=== PATIENT | male | born 1965 | race African-American/Black ===

== ENCOUNTER 2016-10-13 14:41 | Day surgery (SDC) | payer BC ==
--- NOTE | ~2016-10-13 | OP ---
Record Of Operation [facility] [address] [place]. [address] NAME: IMANI JOHNSON : 69 STATUS : [facility]#: [id number] AGE: 50 ADM/REG DATE : 10/13/16 MR#: [id number] REPORT SERV DATE: 10/14/16 DICTATED BY: MARC GREGG DATE: 10/13/16 REPORT STATUS : Draft TRANSCRIBED BY: MODL DATE: 10/13/16 DATE OF PROCEDURE: 10/13/2016 PREOPERATIVE DIAGNOSIS: Necrotic right transmetatarsal amputation. POSTOPERATIVE DIAGNOSES: Necrotic right transmetatarsal amputation. PROCEDURE: 1. Debridement skin, subcutaneous tissues, muscle, tendon, and bone, right transmetatarsal amputation incision of 14 x 5 cm. 2. Placement of VAC dressing 14 x 2 cm. SURGEON: Marc Gregg M.D. ANESTHESIA: General. COMPLICATIONS: None. ESTIMATED BLOOD LOSS: 30 mL. HISTORY: The patient is a 50-year-old male who underwent revascularization and eventual transmetatarsal amputation in [place], [place]. He presented for second opinion. After long discussion, he preferred and attempted salvage with debridement and VAC dressing. This was discussed in detail with the patient and , they expressed understanding and desired to proceed. DESCRIPTION OF PROCEDURE: The patient was taken to the operating room and placed in the supine position. He was given general anesthesia without complication. Right leg was prepped and draped in sterile fashion. The necrotic skin edges and plantar flap, fibrinous debris, and muscle were excised with 10 blade to healthy bleeding tissue. The second through fifth metatarsal heads were resected to the new dorsal margin with the power saw. The necrotic muscle tendon were debrided from the wound to healthy bleeding tissue. A single bleeding vessel was controlled with Vicryl suture. The remaining bleeding was controlled with Bovie cautery. The wound was then copiously irrigated. There was no significant residual necrosis. There was no active infection. The plantar flap was brought dorsally and secured with a single horizontal mattress Ethilon suture. A VAC sponge was then cut to appropriate size and two pieces were placed one on each side of the suture and secured with adhesive. The sponge was placed between the two sponges and brought onto the foot and secured with adhesive as well. Suction was initiated without difficulty. The patient tolerated the procedure well and was taken to recovery room in stable condition. DAPHNEJ/NINO Marc Record Of Operation [facility] [address] [place]. [address] NAME: IMANI JOHNSON : 69 STATUS : [facility] PAT#: [id number] AGE: 50 ADM/REG DATE : 10/13/16 MR#: [id number] REPORT SERV DATE: 10/14/16 DICTATED BY: MARC GREGG DATE: 10/13/16 REPORT STATUS : Draft TRANSCRIBED BY: MODTrenton DATE: 10/13/16 Curt Gregg M.D. / [id number] CC: Alfonzo Dubon MD
[~2016-10-13 14:41] MED LIST: ASAB PO; CAT2 PO; DENIES; GLUCOTRO10 PO; LISINOPRIL40 MG PO; NORCO1 TA2 PO; NORV10 PO
[2016-10-13 15:59] LABS: HEMOGLOBIN 10.7 g/dL (13.6-17.8)
[2016-10-13 16:12] LABS: CHLORIDE, SERUM 106 MMOL/L (96-112); CO2 (CARBON DIOXIDE) 24 MMOL/L (24-34); SODIUM, SERUM 139 MMOL/L (135-148)
[2016-10-13 16:13] LABS: BUN (BLOOD UREA NITROGEN) 52 MG/DL (6-23); CALCIUM, SERUM 10.3 MG/DL (8.5-10.4); CREATININE 2.32 MG/DL (0.70-1.30); GFR AFRICAN AMERICAN 37 ML/MIN (>=60); GFR NON AFRICAN AMERICAN 32 ML/MIN (>=60); GLUCOSE, SERUM 148 MG/DL (60-99)
[2016-11-20] MEDS ORDERED: CLEOCIN300 MG PO (10:16)
== END 2016-10-13 21:10 | disposition home or self-care (01) ==
LOC: SDC 14:41
PROVIDERS: Surgery
PROC: 0QBN0ZZ Excision of Right Metatarsal, Open Approach (ICD-10-PCS; principal; 2016-10-13 16:30)
DX: T87.53 Necrosis of amputation stump, right lower extremity (principal); I12.9 Hypertensive chronic kidney disease with stage 1 through stage 4 chronic kidney disease, or unspecified chronic kidney disease; E11.21 Type 2 diabetes mellitus with diabetic nephropathy; E11.59 Type 2 diabetes mellitus with other circulatory complications; E11.22 Type 2 diabetes mellitus with diabetic chronic kidney disease; E11.51 Type 2 diabetes mellitus with diabetic peripheral angiopathy without gangrene; N18.4 Chronic kidney disease, stage 4 (severe); D64.9 Anemia, unspecified; K21.9 Gastro-esophageal reflux disease without esophagitis; Z87.891 Personal history of nicotine dependence; Z90.49 Acquired absence of other specified parts of digestive tract; Z98.890 Other specified postprocedural states; Z83.3 Family history of diabetes mellitus; Z79.899 Other long term (current) drug therapy; Z79.82 Long term (current) use of aspirin; Z88.0 Allergy status to penicillin; Z79.891 Long term (current) use of opiate analgesic; Z98.41 Cataract extraction status, right eye
CPT/HCPCS: 80048; 82962; 85014; 85018; J0690; J2270; J2370; J2405; J2710; J3010

== ENCOUNTER 2016-11-01 10:25 | Day surgery (SDC) | payer BC ==
[2016-10-31 11:01] LABS: BASOPHILS 0.4 %; BASOPHILS ABSOLUTE 0.04 10/3/uL (0.0-0.16); EOSINOPHILS 4.8 %; EOSINOPHILS ABSOLUTE 0.46 10/3/uL (0.0-0.53); HEMATOCRIT 29.2 % (40.0-51.0); HEMOGLOBIN 9.5 g/dL (13.6-17.8); IMMATURE GRANULOCYTES 0.2 %; IMMATURE GRANULOCYTES ABSOLUTE 0.02 10/3/uL (0.0-0.11); LYMPHOCYTES 26.5 %; LYMPHOCYTES ABSOLUTE 2.55 10/3/uL (0.67-4.30); MEAN CORPUSCULAR HEMOGLOB 28.6 pg (26.0-34.0); MEAN PLATELET VOLUME 8.5 fL (9.2-13.0); MONOCYTES 8.7 %; MONOCYTES ABSOLUTE 0.84 10/3/uL (0.21-1.20); NEUTROPHILS 59.4 %; NEUTROPHILS ABSOLUTE 5.72 10/3/uL (2.02-8.40); WHITE BLOOD CELLS 9.6 10/3/uL (4.5-10.5)
[2016-10-31 11:03] LABS: MANUAL DIFF NO %; MEAN CORPUS HGB CONC 32.5 g/dL (32.0-36.0); PLATELET COUNT 417 10/3/uL (150-400); RED CELL COUNT 3.32 10/6/uL (4.7-6.1)
[2016-10-31 11:16] LABS: CALCIUM, SERUM 9.7 MG/DL (8.5-10.4); CHLORIDE, SERUM 110 MMOL/L (96-112); CO2 (CARBON DIOXIDE) 26 MMOL/L (24-34); CREATININE 1.87 MG/DL (0.70-1.30); GFR AFRICAN AMERICAN 48 ML/MIN (>=60); GFR NON AFRICAN AMERICAN 41 ML/MIN (>=60); POTASSIUM, SERUM 4.9 MMOL/L (3.5-5.3); SODIUM, SERUM 142 MMOL/L (135-148)
[2016-10-31 11:21] LABS: BUN (BLOOD UREA NITROGEN) 30 MG/DL (6-23); GLUCOSE, SERUM 86 MG/DL (60-99)
--- NOTE | ~2016-11-01 | OP ---
Record Of Operation [facility] [address] [place]. [address] NAME: IMANI JOHNSON : 69 STATUS : REG [facility] PAT#: [id number] AGE: 51 ADM/REG DATE : 11/01/16 MR#: [id number] REPORT SERV DATE: 11/01/16 DICTATED BY: HONG GREGG DATE: 11/01/16 REPORT STATUS : Draft TRANSCRIBED BY: NINO DATE: 11/01/16 DATE OF PROCEDURE: 11/01/2016 PREOPERATIVE DIAGNOSIS: Open wound right transmetatarsal amputation. POSTOPERATIVE DIAGNOSIS: Open wound right transmetatarsal amputation. PROCEDURE: 1. Debridement 5 x 10 cm, skin, subcutaneous tissues, bone, and muscle. 2. Closure 10 cm in length complex wound right foot. SURGEON: Hong Gregg M.D. SHERIFF'S DETECTIVE: Portia. ANESTHESIA: General. COMPLICATIONS: None. ESTIMATED BLOOD LOSS: 30 mL. HISTORY: The patient is a 51-year-old male, who has a failed right TMA due to infection. He has undergone debridement and wound care. It was felt he would benefit from repeat debridement and possible closure. This was discussed in detail with the patient and and they expressed understanding and desired to proceed. DESCRIPTION OF PROCEDURE: The patient was taken to the operating room and placed in the supine position. He was given general anesthesia without complication. Right foot was prepped and draped in a sterile fashion. A 10 blade was used to excise necrotic skin and subcutaneous tissues around the wound edges. The power saw was used to remove the remaining metatarsal bones 1 through 5 to a smooth edge. The posterior flap had the excess muscle which was excised sharply with a 10 blade to healthy tissue. The wound was copiously irrigated. Hemostasis assured. The flaps came together now without tension. Once hemostasis was felt to be adequate, the wound was then brought together with multiple interrupted 0 Prolene vertical mattress sutures measuring 10 cm in length. Sterile dressing was applied. The patient tolerated the procedure without difficulty. JAMES/NINO Hong Gregg M.D. / [id number] Record Of Operation [facility] [address]. [address] NAME: IMANI JOHNSON : 69 STATUS : REG [facility] PAT#: [id number] AGE: 51 ADM/REG DATE : 11/01/16 MR#: [id number] REPORT SERV DATE: 11/01/16 DICTATED BY: HONG GREGG DATE: 11/01/16 REPORT STATUS : Draft TRANSCRIBED BY: MODL DATE: 11/01/16 CC: Alfonzo Dubon
[2016-11-20] MEDS ORDERED: CLEOCIN300 MG PO (10:16)
== END 2016-11-01 16:44 | disposition home or self-care (01) ==
LOC: SDC 10:25
PROVIDERS: Surgery
PROC: 0QBL0ZZ Excision of Right Tarsal, Open Approach (ICD-10-PCS; principal; 2016-11-01 13:00)
DX: S98.311 Complete traumatic amputation of right midfoot (principal); I70.235 Atherosclerosis of native arteries of right leg with ulceration of other part of foot; N18.9 Chronic kidney disease, unspecified; I12.9 Hypertensive chronic kidney disease with stage 1 through stage 4 chronic kidney disease, or unspecified chronic kidney disease; E11.21 Type 2 diabetes mellitus with diabetic nephropathy; E11.59 Type 2 diabetes mellitus with other circulatory complications; E55.9 Vitamin D deficiency, unspecified; J45.909 Unspecified asthma, uncomplicated; Z98.890 Other specified postprocedural states; Z79.82 Long term (current) use of aspirin; Z87.891 Personal history of nicotine dependence; Z79.899 Other long term (current) drug therapy; Z88.0 Allergy status to penicillin; Z90.49 Acquired absence of other specified parts of digestive tract
CPT/HCPCS: 80048; 82962; 85025; 93005; J0690; J2250; J2405; J3010

== ENCOUNTER 2016-11-21 15:55 | Inpatient (IN) | payer BC ==
--- NOTE | ~2016-11-21 | DS ---
Discharge Summary [facility] [address] [place]. [address] NAME: IMANI JOHNSON : 69 STATUS : DIS IN PAT#: [id number] AGE: 51 ADM/REG DATE : 11/21/16 MR#: [id number] REPORT SERV DATE: 12/08/16 DICTATED BY: HONG GREGG DATE: 12/07/16 REPORT STATUS : Draft TRANSCRIBED BY: NINO DATE: 12/07/16 Data Collection from hospitalization DISCHARGE DIAGNOSES: 1. Nonhealing transmetatarsal amputation of the right diabetic foot wound. 2. Type 2 diabetes mellitus. 3. Hypertension. 4. Diabetic nephropathy. 5. Vitamin D deficiency. 6. Former smoker. CONSULTATIONS: Yovani Britton M.D. PROCEDURES PERFORMED: 1. Right kzyau-lam-nlay amputation on 11/21/2016. 2. Renal color flow ultrasound on 11/23/2016. PATHOLOGY: Right lower extremity omcyf-wbo-psds amputation - gangrenous necrosis at transmetatarsal amputation site with underlying osteomyelitis, calcific atherosclerosis of the major vessels with luminal stenosis, viable and uninflamed resection margins. MEDICATIONS: Norvasc 10 mg daily, aspirin 81 mg daily, Glucotrol 10 mg before breakfast, Lopressor 12.5 mg twice a day, Flomax 0.4 mg at 6:00 p.m. as instructed, Catapres 0.2 mg at bedtime, and [place] 7.5/325 one tablet every six hours as needed. Prinivil would be held until renal followup. CONDITION AT DISCHARGE: Stable. DISPOSITION: The patient was discharged to [facility] on a diabetic diet with activities as instructed. He would follow up with me 10 to 14 days following discharge. HOSPITAL COURSE: This is a 51-year-old man who has diabetes and peripheral arterial disease. We had made extensive efforts to salvage his right foot. He most recently had closure of the transmetatarsal amputation, which was infected and nonhealing. It was now felt that he would benefit from chrtp-oun-yxhg amputation. Treatment options were discussed and it was elected to proceed with surgical intervention. He was admitted to the hospital at this time for further evaluation and treatment. Upon admission, he was taken to the operating room where he underwent the above-mentioned procedure. He tolerated this well, and there were no complications. On postop day #1, pain control was okay with the RESEARCH BIOSTATISTICIAN. He does have chronic kidney disease. He was seen by Dr. Yovani Britton regarding acute kidney injury on likely chronic kidney disease with hyperkalemia. The patient reports no exposure to contrast medium and it did not appear that these were used during his surgical intervention. He did have a 200 mL loss of blood according to his surgical report. He has not had any difficulty with nausea, vomiting, or diarrhea. He was chronically maintained on an HONG inhibitor in the outpatient setting and had not chronically used nonsteroidal medications. He reported that his diabetes and Discharge Summary [facility] [address] [place]. [address] NAME: IMANI JOHNSON : 69 STATUS : DIS IN PAT#: [id number] AGE: 51 ADM/REG DATE : 11/21/16 MR#: [id number] REPORT SERV DATE: 12/08/16 DICTATED BY: HONG GREGG DATE: 12/07/16 REPORT STATUS : Draft TRANSCRIBED BY: NINO DATE: 12/07/16 hypertension are usually relatively well controlled. His last hemoglobin A1c according to the patient was around 7. He was awake and alert. He denied any current chest pain, nausea, vomiting, or diarrhea. He recently stopped smoking. White count was 14.2. It appears that he had some level of chronic kidney disease. It was felt that baseline creatinine is likely around 1.5 to 1.8 with subsequent acute kidney injury and likely secondary to ATN with noted intraoperative hypotension. Given that he has not had a previous chronic kidney disease workup, we would undertake the following. We would complete a renal ultrasound with Doppler given his smoking and vascular history. We would evaluate urine studies for urine sodium, urine creatinine, and dshncop-mg-chzkwlxetv ratio to ascertain and quantitate his urinary protein excretion. We would treat his potassium with Kayexalate x1 since he appears to have chronic difficulty with hyperkalemia. We were going to take him off his HONG inhibitor and replace that medication with a beta-jodi as it did appear that he would need improvement in his rate control as well as some level of assistance with hypertension control. We would check postvoid residual to ensure there was no urinary retention. It was advised that we avoid contrast medium and avoid nonsteroidal medications. He would be re-evaluated with regard to his need for chronic HONG inhibitor as well as ARB based on his urinary protein excretion, hyperkalemia, and overall medical needs. Further modification of his treatment plan may be made based on clinical presentation, lab results, and further consultation with renal attending. He was evaluated by Occupational and Physical Therapy. On 11/23/2016, he was feeling better. His incision was clean, dry, and intact. Creatinine level had decreased to 1.9. Acute renal failure was improving. He was transfused one unit of packed red blood cells. Discharge planning was performed. Renal color flow ultrasound was obtained. The kidneys appeared grossly normal, nonobstructive, and non-atrophy. There was no evidence of renal artery stenosis seen. Discharge planning was performed. On 11/24/2016, he had no new complaints. He was alert and cooperative. He had no edema. Creatinine level was 1.86. Discharge instructions were given. Due to his improved and stable condition, he was discharged to [facility] with the above-stated instructions. Information collected by: Ann Loaiza I submit the above information as my discharge summary. TG/MODL Hong Gregg M.D. / [id number] CC: Alfonzo Dubon FRANCES [facility] Yovani Britton M.D.
--- NOTE | ~2016-11-21 | OP ---
Record Of Operation [facility] [address] [place]. [address] NAME: IMANI JOHNSON : 69 STATUS : ADM IN PAT#: [id number] AGE: 51 ADM/REG DATE : 11/21/16 MR#: [id number] REPORT SERV DATE: 11/21/16 DICTATED BY: MARC GREGG DATE: 11/21/16 REPORT STATUS : Draft TRANSCRIBED BY: MODL DATE: 11/21/16 DATE OF PROCEDURE: 11/21/2016 PREOPERATIVE DIAGNOSIS: Nonhealing transmetatarsal amputation on the right diabetic foot wound. POSTOPERATIVE DIAGNOSIS: Nonhealing transmetatarsal amputation on the right diabetic foot wound. PROCEDURE: Right below-knee amputation. SURGEON: Marc Gregg M.D. FELLOW: Alvin. ANESTHESIA: General. COMPLICATIONS: None. BLOOD LOSS: 200 mL. HISTORY: The patient is a 51-year-old male with diabetes, peripheral arterial disease, extensive efforts to salvage his right foot. He most recently had closure of the transmetatarsal amputation, which was infected and nonhealing. It was felt he would benefit from below-knee amputation. This was discussed in detail with the patient and family. They expressed understanding and desired to proceed. DESCRIPTION OF PROCEDURE: The patient was taken to the operating room and placed in the supine position. He was given general anesthesia without complication. Right leg was prepped and draped in sterile fashion. An incision was created on the anterior lower leg, more than 4 fingerbreadths from the tibial tuberosity and a long posterior flap created as well. Bovie cautery was used to dissect the subcutaneous tissues and muscle circumferentially. The tibial vessels were identified and ligated with silk ties and divided. The tibia and fibula were freed circumferentially. The tibia was divided at the level of the anterior flap. The fibula was divided 2 cm proximal both with the power saw. The tibial anterior aspect was beveled with a power saw to a smooth edge and a rasp was used as well. The leg was passed off the table as specimen. The wound was copiously irrigated. Hemostasis assured. 20 mL of 0.5% Marcaine were injected throughout the wound. The flaps were brought together and the deep fascia was closed with running 2-0 Vicryl suture. The skin was closed with multiple interrupted 2-0 Ethilon vertical mattress sutures and skin ronny. Sterile dressing were applied. The patient tolerated the procedure well. He will be extubated in the operating room, and taken to recovery for continued care. CSJ/MODL Record Of Operation [place] [address] [place]. [address] NAME: IMANI JOHNSON : 69 STATUS : ADM IN PAT#: [id number] AGE: 51 ADM/REG DATE : 11/21/16 MR#: [id number] REPORT SERV DATE: 11/21/16 DICTATED BY: MARC GREGG DATE: 11/21/16 REPORT STATUS : Draft TRANSCRIBED BY: MODL DATE: 11/21/16 Marc Gregg M.D. / [id number] CC: Alfonzo Dubon FRANCES
--- NOTE | ~2016-11-21 | CN ---
Consultation Report [facility] [address] [place]. [address] NAME: IMANI JOHNSON : 69 STATUS : ADM IN PAT#: [id number] AGE: 51 ADM/REG DATE : 11/21/16 MR#: [id number] REPORT SERV DATE: 11/22/16 DICTATED BY: YOVANI BRITTON DATE: 11/22/16 REPORT STATUS : Draft TRANSCRIBED BY: NINO DATE: 11/22/16 DATE OF CONSULTATION: REASON FOR CONSULTATION: Acute kidney injury on likely CKD with hyperkalemia. HISTORY OF PRESENT ILLNESS: This is a very pleasant 51-year-old, male patient with a nonhealing right diabetic foot ulcer with subsequent right BKA. He is POD #1 today and we are asked to evaluate him in light of a rising serum creatinine with probable underlying CKD. The patient is awake and alert this morning, lying in bed. During evaluation, his pain is well controlled. He reports no chronic or outlying evaluation for chronic kidney disease. 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 He reports no exposure to contrast medium and it does not appear that these were used during surgical intervention. He did however have a 200 mL loss of blood according to his surgical report. He has not had any difficulty with nausea, vomiting, or diarrhea. He is chronically maintained on an HONG inhibitor in the outpatient setting and has not chronically used nonsteroidal medications. He reports that his diabetes and hypertension are usually relatively well controlled. Last A1c according to the patient today was around 7.0. He is awake and alert this morning. Denies current chest pain. No nausea, vomiting, or diarrhea. 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 Chronic kidney disease, baseline creatinine appears to be around 1.5 to 1.8, but the patient has not. According to his recall today, has been evaluated in the outpatient setting by a Renal provider. Personal history of tobacco usage with recent smoking cessation within the last calendar year. Prior to that, he smoked half a pack per day from age 20. Diabetes mellitus type 2 with diabetic nephropathy. No evidence of retinopathy reported by the patient. Vitamin D deficiency and hypertension. PAST SURGICAL HISTORY: Includes toe amputation on 09/12/[address] [facility]. Debridement of wound, 09/19/2016, including excision of metatarsal head by Dr. Lara, [facility]. Abdominal aortogram, 09/08/2016, with arthrectomy and BATTERY TESTER FIELD of right lower extremity. Gallbladder removal. Debridement of skin and subcutaneous tissue, 10/13/2016, 14 x 5 cm with placement of VAC dressing by Dr. Gregg at [facility]. SOCIAL HISTORY: Recent reformed smoker. Recently . 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 No EtOH. No illicit drugs. FAMILY HISTORY: Positive for diabetes, but no evidence of chronic or end-stage renal disease by patient's recall. CURRENT MEDICATIONS AND ALLERGIES: He lists allergies to penicillin. Active medications include amlodipine 10 mg daily, ASA 81 mg daily, Ancef 2 g IV q.8 h., Catapres 0.2 mg p.o. at bedtime, Glucotrol 10 mg p.o. before meals, Heparin 5000 units subcu Consultation Report [place] [id number] [place]. [address] NAME: IMANI JOHNSON : 69 STATUS : ADM IN PAT#: [id number] AGE: 51 ADM/REG DATE : 11/21/16 MR#: [id number] REPORT SERV DATE: 11/22/16 DICTATED BY: YOVANI BRITTON DATE: 11/22/16 REPORT STATUS : Draft TRANSCRIBED BY: NINO DATE: 11/22/16 q.8 h., NovoLog via sliding scale level 1, Prinivil 40 mg p.o. daily, morphine FLIGHT OPERATIONS DISPATCH CLERK for pain control, normal saline infusing at 100 mL/h, anti-nausea and anti-pain medications are also available, as well as electrolyte protocol. REVIEW OF SYSTEMS: Completed. Please see HPI for pertinent details. PHYSICAL EXAMINATION: VITAL SIGNS: Blood pressure at 161/72, temperature 98.5, respiratory rate at 18, heart rate of 111 beats per minute and regular. He is 99% on room air. GENERAL: He is a very pleasant, obese male patient, lying in bed during evaluation. HEENT: Normocephalic and atraumatic. Normal ocular movements. No scleral icterus. No conjunctival pallor is appreciated. NECK: Supple without thyromegaly. No JVD or mass. CHEST: Positive S1 and S2. No rubs or gallops. LUNGS: Diminished, clear to auscultation. Otherwise, normal expansion and effort. No rhonchi or wheezes are appreciated on auscultation. GI: Positive bowel sounds in all four quadrants. No appreciable mass or tenderness. : Deferred. He does have a urinal at bedside with clear yellow urine of about 300 mL. NEUROLOGIC: Appears to be grossly intact, nonfocal. EXTREMITIES: Positive pulses to bilateral upper extremities as well as left lower extremity. He does have a right BKA with an immobilizer in place. SKIN: Warm, dry, and intact to visualized surfaces. No rash, lesions, or ecchymosis. He is of appropriate mood and affect. LABORATORY DATA: Pertinent laboratories and imaging to this evaluation are as follows. Most recent electrolyte profile, sodium 130, potassium 5.5, chloride 100, CO2 22, BUN 34, with creatinine at 2.35. Reflected GFR at 36 mL/minutes. Glucose of 220. Calcium 9.3. CBC, white blood cell count of 14.2, RBC 2.54, hemoglobin 7.0 hematocrit 21.3, platelets of 499. IMPRESSION AND PLAN: This is a very pleasant 51-year-old, male patient, postoperative day #1 right lower extremity below knee amputation secondary to nonhealing diabetic foot ulcer with history including peripheral vascular disease, hypertension, diabetes, and obesity. In review of his pertinent laboratories historically, it does appear that he has some level of chronic kidney disease. Baseline creatinine is likely around 1.5 to 1.8 with subsequent acute kidney injury today and likely secondary to ATN with noted intraoperative hypotension. However, given that he has not had a previous chronic kidney disease workup, we will undertake the following. We will complete a renal ultrasound with Doppler given his smoking and vascular history. Evaluate urine studies for urine sodium, urine creatinine, and gxemxyd-wa-dujdxijuyl ratio to ascertain and quantitate his urinary protein excretion. Treat his potassium with Kayexalate 30 g x1 since he appears to have a chronic difficulty with hyperkalemia. At this point, we will take him off his HONG inhibitor and replace that medication with beta-jodi as it does appear he needs improvement in his rate control as well as some level of assistance with hypertension control. Check postvoid Consultation Report [facility] [address] [place]. [address] NAME: IMANI JOHNSON : 69 STATUS : ADM IN PAT#: [id number] AGE: 51 ADM/REG DATE : 11/21/16 MR#: [id number] REPORT SERV DATE: 11/22/16 DICTATED BY: YOVANI BRITTON DATE: 11/22/16 REPORT STATUS : Draft TRANSCRIBED BY: MODL DATE: 11/22/16 residual to assure no urinary retention. Advised to avoid contrast medium, avoid nonsteroidal medications. Going forward, chronically. We will re-evaluate need for chronic HONG inhibitor as well as ARB based of his urinary protein excretion, hyperkalemia, and overall medical needs. Further modification of treatment plan may be made based on clinical presentation, patient laboratory results, further consultation with renal attending. We appreciate consultation. We are glad to follow this patient with you. DICTATED BY: Art Carter NP JR/NINO Yovani Britton M.D. / [id number] CC: Alfonzo Dubon FRANCES
[~2016-11-21 15:55] MED LIST changes: +CLEOCIN300 MG PO
[2016-11-21 16:50] LABS: BASOPHILS 0.3 %; BASOPHILS ABSOLUTE 0.04 10/3/uL (0.0-0.16); EOSINOPHILS 1.7 %; EOSINOPHILS ABSOLUTE 0.23 10/3/uL (0.0-0.53); HEMATOCRIT 25.7 % (40.0-51.0); HEMOGLOBIN 8.3 g/dL (13.6-17.8); IMMATURE GRANULOCYTES 0.3 %; IMMATURE GRANULOCYTES ABSOLUTE 0.04 10/3/uL (0.0-0.11); LYMPHOCYTES 11.8 %; LYMPHOCYTES ABSOLUTE 1.55 10/3/uL (0.67-4.30); MANUAL DIFF NO %; MEAN CORPUS HGB CONC 32.3 g/dL (32.0-36.0); MEAN CORPUSCULAR HEMOGLOB 27.3 pg (26.0-34.0); MEAN CORPUSCULAR VOLUME 84.5 fL (80-100); MEAN PLATELET VOLUME 8.2 fL (9.2-13.0); MONOCYTES 7.4 %; MONOCYTES ABSOLUTE 0.97 10/3/uL (0.21-1.20); NEUTROPHILS 78.5 %; NEUTROPHILS ABSOLUTE 10.36 10/3/uL (2.02-8.40); PLATELET COUNT 550 10/3/uL (150-400); RBC DISTRIBUTION WIDTH 13.9 % (12.0-16.0); RED CELL COUNT 3.04 10/6/uL (4.7-6.1); WHITE BLOOD CELLS 13.2 10/3/uL (4.5-10.5)
[2016-11-21 17:08] LABS: CALCIUM, SERUM 10.2 MG/DL (8.5-10.4); CHLORIDE, SERUM 104 MMOL/L (96-112); CO2 (CARBON DIOXIDE) 23 MMOL/L (24-34); CREATININE 2.35 MG/DL (0.70-1.30); GFR AFRICAN AMERICAN 36 ML/MIN (>=60); GFR NON AFRICAN AMERICAN 31 ML/MIN (>=60); POTASSIUM, SERUM 5.6 MMOL/L (3.5-5.3)
[2016-11-21 17:09] LABS: BUN (BLOOD UREA NITROGEN) 34 MG/DL (6-23); GLUCOSE, SERUM 110 MG/DL (60-99); SODIUM, SERUM 133 MMOL/L (135-148)
[2016-11-22 05:26] LABS: BASOPHILS 0.2 %; BASOPHILS ABSOLUTE 0.03 10/3/uL (0.0-0.16); BUN (BLOOD UREA NITROGEN) 34 MG/DL (6-23); CALCIUM, SERUM 9.3 MG/DL (8.5-10.4); CHLORIDE, SERUM 100 MMOL/L (96-112); CO2 (CARBON DIOXIDE) 22 MMOL/L (24-34); CREATININE 2.35 MG/DL (0.70-1.30); EOSINOPHILS 0.4 %; EOSINOPHILS ABSOLUTE 0.05 10/3/uL (0.0-0.53); GFR AFRICAN AMERICAN 36 ML/MIN (>=60); GFR NON AFRICAN AMERICAN 31 ML/MIN (>=60); IMMATURE GRANULOCYTES 0.5 %; IMMATURE GRANULOCYTES ABSOLUTE 0.07 10/3/uL (0.0-0.11); LYMPHOCYTES 11.7 %; LYMPHOCYTES ABSOLUTE 1.66 10/3/uL (0.67-4.30); MEAN CORPUS HGB CONC 32.9 g/dL (32.0-36.0); MEAN CORPUSCULAR HEMOGLOB 27.6 pg (26.0-34.0); MEAN CORPUSCULAR VOLUME 83.9 fL (80-100); MEAN PLATELET VOLUME 8.3 fL (9.2-13.0); MONOCYTES 8.4 %; MONOCYTES ABSOLUTE 1.19 10/3/uL (0.21-1.20); NEUTROPHILS 78.8 %; NEUTROPHILS ABSOLUTE 11.24 10/3/uL (2.02-8.40); PLATELET COUNT 499 10/3/uL (150-400); POTASSIUM, SERUM 5.5 MMOL/L (3.5-5.3); RED CELL COUNT 2.54 10/6/uL (4.7-6.1); SODIUM, SERUM 130 MMOL/L (135-148); WHITE BLOOD CELLS 14.2 10/3/uL (4.5-10.5)
[2016-11-22 05:27] LABS: GLUCOSE, SERUM 220 MG/DL (60-99)
[2016-11-22 05:28] LABS: HEMATOCRIT 21.3 % (40.0-51.0); MANUAL DIFF NO %
[2016-11-22 17:49] LABS: CREATININE RANDOM UR 86.7 MG/DL; CREATININE, URINE 86.7 MG/DL; UR PROTEIN/CREAT RATIO 0.98 (< 0.2)
[2016-11-23 06:17] LABS: BASOPHILS 0.2 %; BASOPHILS ABSOLUTE 0.02 10/3/uL (0.0-0.16); EOSINOPHILS 1.9 %; EOSINOPHILS ABSOLUTE 0.22 10/3/uL (0.0-0.53); HEMATOCRIT 19.8 % (40.0-51.0); HEMOGLOBIN 6.5 g/dL (13.6-17.8); IMMATURE GRANULOCYTES 0.3 %; IMMATURE GRANULOCYTES ABSOLUTE 0.04 10/3/uL (0.0-0.11); LYMPHOCYTES 21.2 %; LYMPHOCYTES ABSOLUTE 2.44 10/3/uL (0.67-4.30); MEAN CORPUS HGB CONC 32.8 g/dL (32.0-36.0); MEAN CORPUSCULAR HEMOGLOB 27.2 pg (26.0-34.0); MEAN CORPUSCULAR VOLUME 82.8 fL (80-100); MEAN PLATELET VOLUME 8.3 fL (9.2-13.0); MONOCYTES 13.3 %; MONOCYTES ABSOLUTE 1.53 10/3/uL (0.21-1.20); NEUTROPHILS 63.1 %; NEUTROPHILS ABSOLUTE 7.28 10/3/uL (2.02-8.40); PLATELET COUNT 464 10/3/uL (150-400); RBC DISTRIBUTION WIDTH 13.7 % (12.0-16.0); RED CELL COUNT 2.39 10/6/uL (4.7-6.1); WHITE BLOOD CELLS 11.5 10/3/uL (4.5-10.5)
[2016-11-23 06:20] LABS: MANUAL DIFF NO %
[2016-11-23 06:28] LABS: ALBUMIN 2.1 G/DL (3.5-5.0); BUN (BLOOD UREA NITROGEN) 23 MG/DL (6-23); CALCIUM, SERUM 9.4 MG/DL (8.5-10.4); CHLORIDE, SERUM 102 MMOL/L (96-112); CO2 (CARBON DIOXIDE) 22 MMOL/L (24-34); CREATININE 1.86 MG/DL (0.70-1.30); GFR AFRICAN AMERICAN 48 ML/MIN (>=60); GFR NON AFRICAN AMERICAN 42 ML/MIN (>=60); GLUCOSE, SERUM 141 MG/DL (60-99); PHOSPHORUS, SERUM 3.1 MG/DL (2.5-4.5); POTASSIUM, SERUM 4.9 MMOL/L (3.5-5.3); SODIUM, SERUM 133 MMOL/L (135-148)
[2016-11-24 09:23] LABS: ALBUMIN 2.1 G/DL (3.5-5.0); CALCIUM, SERUM 9.5 MG/DL (8.5-10.4); CHLORIDE, SERUM 103 MMOL/L (96-112); GFR AFRICAN AMERICAN 42 ML/MIN (>=60); GFR NON AFRICAN AMERICAN 36 ML/MIN (>=60); PHOSPHORUS, SERUM 3.9 MG/DL (2.5-4.5); POTASSIUM, SERUM 4.7 MMOL/L (3.5-5.3); SODIUM, SERUM 137 MMOL/L (135-148)
[2016-11-24 09:27] LABS: BUN (BLOOD UREA NITROGEN) 38 MG/DL (6-23); CO2 (CARBON DIOXIDE) 27 MMOL/L (24-34); GLUCOSE, SERUM 92 MG/DL (60-99)
[2016-11-24 09:28] LABS: BASOPHILS 0.4 %; BASOPHILS ABSOLUTE 0.03 10/3/uL (0.0-0.16); EOSINOPHILS 3.9 %; EOSINOPHILS ABSOLUTE 0.33 10/3/uL (0.0-0.53); HEMATOCRIT 21.7 % (40.0-51.0); IMMATURE GRANULOCYTES 0.4 %; IMMATURE GRANULOCYTES ABSOLUTE 0.03 10/3/uL (0.0-0.11); LYMPHOCYTES 24.2 %; LYMPHOCYTES ABSOLUTE 2.06 10/3/uL (0.67-4.30); MEAN CORPUS HGB CONC 32.3 g/dL (32.0-36.0); MEAN CORPUSCULAR HEMOGLOB 26.9 pg (26.0-34.0); MEAN CORPUSCULAR VOLUME 83.5 fL (80-100); MEAN PLATELET VOLUME 8.7 fL (9.2-13.0); MONOCYTES 16.5 %; NEUTROPHILS 54.6 %; NEUTROPHILS ABSOLUTE 4.66 10/3/uL (2.02-8.40); PLATELET COUNT 415 10/3/uL (150-400); RBC DISTRIBUTION WIDTH 14.3 % (12.0-16.0); WHITE BLOOD CELLS 8.5 10/3/uL (4.5-10.5)
[2016-11-24 09:29] LABS: MANUAL DIFF NO %
== END 2016-11-24 16:08 | DRG 474 ==
LOC: SDC/OF 15:55 → 2SO 21:16
PROVIDERS: Registered Nurse; Surgery
PROC: 0Y6H0Z2 Detachment at Right Lower Leg, Mid, Open Approach (ICD-10-PCS; principal; 2016-11-21 17:45)
PROC: 30233N1 Transfusion of Nonautologous Red Blood Cells into Peripheral Vein, Percutaneous Approach (ICD-10-PCS; 2016-11-23)
DX: T87.43 Infection of amputation stump, right lower extremity (principal); N17.0 Acute kidney failure with tubular necrosis; E11.22 Type 2 diabetes mellitus with diabetic chronic kidney disease; I95.9 Hypotension, unspecified; D62 Acute posthemorrhagic anemia; E87.5 Hyperkalemia; E11.51 Type 2 diabetes mellitus with diabetic peripheral angiopathy without gangrene; N18.9 Chronic kidney disease, unspecified; I12.9 Hypertensive chronic kidney disease with stage 1 through stage 4 chronic kidney disease, or unspecified chronic kidney disease; E66.9 Obesity, unspecified; J45.909 Unspecified asthma, uncomplicated; R33.9 Retention of urine, unspecified; Z88.1 Allergy status to other antibiotic agents; Z79.4 Long term (current) use of insulin; Z87.891 Personal history of nicotine dependence; Z68.30 Body mass index [BMI] 30.0-30.9, adult
CPT/HCPCS: 36415; 36430; 80048; 80069; 82570; 82962; 83036; 83735; 84132; 84156; 84300; 85025; 86850; 86900; 86901; 86920; 88307; 88311; 93005; 93975; 97110-GO; 97110-GP; 97116-GP; 97162-GP; 97165-GO; 97535-GO; A9270-GY; J0690; J2250; J2270; J2405; J2710; J3010; P9016